=== PATIENT | male | born 1995 | race Caucasian/White ===

== ENCOUNTER 2018-12-31 22:43 | Emergency (ER) | payer OTHER ==
[~2018-12-31] VITALS: Ht 175.3 cm; Wt 90.7 kg
[~2018-12-31 22:43] MED LIST: POTASSIUM20 PO
[2018-12-31] MEDS ORDERED: LATUDA40 MG PO (22:50)
[2019-01-01 00:45] VITALS: BP 124/91
== END 2019-01-01 00:47 | disposition home or self-care (01) ==
LOC: ER 22:43
DX: S06.891A Other specified intracranial injury with loss of consciousness of 30 minutes or less, initial encounter (principal); F17.200 Nicotine dependence, unspecified, uncomplicated; W10.9XXA Fall (on) (from) unspecified stairs and steps, initial encounter; Y92.89 Other specified places as the place of occurrence of the external cause; Y99.0 Civilian activity done for income or pay; Y99.8 Other external cause status